=== PATIENT | male | born 1970 | race African-American/Black ===

== ENCOUNTER 2018-05-06 15:08 | Emergency (ER) | payer MEDICAID ==
[~2018-05-06] VITALS: Ht 182.9 cm; Wt 113.0 kg
[2018-05-06 15:38] VITALS: BP 100/42
== END 2018-05-06 15:43 | disposition home or self-care (01) ==
LOC: ER 15:08
DX: M25.562 Pain in left knee (principal); R42 Dizziness and giddiness; Z86.73 Personal history of transient ischemic attack (TIA), and cerebral infarction without residual deficits; Z88.8 Allergy status to other drugs, medicaments and biological substances; W01.0XXA Fall on same level from slipping, tripping and stumbling without subsequent striking against object, initial encounter; Y93.89 Activity, other specified; Y92.89 Other specified places as the place of occurrence of the external cause; Y99.8 Other external cause status
CPT/HCPCS: 99284